=== PATIENT | male | born 1975 ===

== ENCOUNTER 2017-03-12 09:56 | Emergency (ER) | payer OTHER ==
[2017-03-12 10:30] VITALS: RESP 16; TEMP 97.2; O2SAT 100
[2017-03-12] MEDS ORDERED: Albuterol-Ipratrop 3 mg / 0.5 (3 ml) UD INH STA (10:38)
[2017-03-12] MEDS ORDERED: Albuterol-Ipratrop 3 mg / 0.5 (3 ml) UD ONE (10:42)
--- NOTE | 2017-03-12 10:49 | ED PDOC ---
HPI: CCC, URI, Sore Throat Time Seen by Provider: 03/12/17 10:26 Chief Complaint (Nursing): Shortness Of Breath Chief Complaint (Provider): Nasal Congestion History Per: Patient History/Exam Limitations: no limitations Onset/Duration Of Symptoms: Days (x2) Additional Complaint(s): Ehsan Martinez is a 41 year old male that presents to the ED with a chief complaint of a stuffy nose, throat tightness, and chest tightness that he has been experiencing for the past two days. Patient reports that he took OTC antihistamine and Mucinex without relief. He denies any fever, cough, or chest pain, but states that it feels as though he has an "irregular heartbeat." Past Medical History Reviewed: Historical Data, Nursing Documentation, Vital Signs Vital Signs: Last Vital Signs Temp 97.2 F L 03/12/17 10:26 Pulse 79 03/12/17 10:26 Resp 16 03/12/17 10:31 BP 147/99 H 03/12/17 10:26 Pulse Ox 100 03/12/17 14:22 - Medical History PMH: No Chronic Diseases - Surgical History Surgical History: No Surg Hx - Family History Family History: States: Unknown Family Hx - Social History Current smoker - smoking cessation education provided: No Alcohol: Occasional - Allergies Allergies/Adverse Reactions: Allergies Allergy/AdvReac Type Severity Reaction Status Date / Time No Known Allergies Allergy Verified 03/12/17 10:26 Review of Systems Constitutional: Negative for: Fever ENT: Positive for: Nose Congestion, Throat Swelling ("throat tightness") Cardiovascular: Positive for: Other ("chest tightness"). Negative for: Chest Pain Respiratory: Negative for: Cough Physical Exam - Reviewed Nursing Documentation Reviewed: Yes Vital Signs Reviewed: Yes - Physical Exam Appears: Positive for: Non-toxic, No Acute Distress (Patient is speaking full sentences) Head Exam: Positive for: ATRAUMATIC, NORMOCEPHALIC Skin: Positive for: Normal Color, Warm Eye Exam: Positive for: Normal appearance, EOMI ENT: Positive for: Pharynx Is (clear), Nasal Congestion, Other (Throat is clear. Uvula midline. No drooling. ). Negative for: Normal ENT Inspection, Tonsillar Exudate, Tonsillar Swelling Cardiovascular/Chest: Positive for: Regular Rate, Rhythm. Negative for: Murmur Respiratory: Positive for: Normal Breath Sounds. Negative for: Wheezing Gastrointestinal/Abdominal: Positive for: Normal Exam, Soft. Negative for: Tenderness Extremity: Positive for: Normal ROM. Negative for: Pedal Edema Neurologic/Psych: Positive for: Alert, Oriented. Negative for: Motor/Sensory Deficits - Laboratory Results Result Diagrams: 03/12/17 10:50 03/12/17 10:50 - ECG O2 Sat by Pulse Oximetry: 100 (RA) Pulse Ox Interpretation: Normal Medical Decision Making Medical Decision Making: Impression: URI vs. Bronchospasm Plan: * Chest X-Ray * EKG * CMP * CBC * PTT * PT * Troponin I * D-Dimer * Duoneb 3 mg INH * Reevaluation Chest X-Ray FINDINGS: LUNGS: No active pulmonary disease. PLEURA: No significant pleural effusion identified. No pneumothorax apparent. CARDIOVASCULAR: Normal. OSSEOUS STRUCTURES: No significant abnormalities. VISUALIZED UPPER ABDOMEN: Normal. OTHER FINDINGS: None. IMPRESSION: No acute cardiopulmonary disease appreciated. CT Neck/Chest FINDINGS: LUNGS: No infiltrate is identified bilaterally. No definitive mass is seen throughout the pulmonary parenchyma including central airways. MEDIASTINUM: Unremarkable thoracic aorta. No aneurysm or dissection. Normal sized heart. Main pulmonary artery unremarkable. No vascular congestion. No lymphadenopathy. Small hiatal hernia is encountered. PLEURA: No pleural fluid. No pneumothorax. BONES: No fracture. No destructive lesion. UPPER ABDOMEN: Incidental note is made of an ovoid radiodensity within the gastric lumen suggestive of and undigested pill. OTHER FINDINGS: NECK CT: In the neck, the airway through the pharynx larynx and trachea is widely patent without any obstruction identified. No definitive mass seen in the supra or infrahyoid neck with shotty supra and infrahyoid neck lymph nodes identified. Vascular anatomy appears diffusely unremarkable with the salivary glands homogeneous overall opacification. No discrete salivary gland mass is evident. The thyroid gland is unremarkable as well. Incidental views through the visualized brain is sinuses reveal extensive bilateral ethmoid and maxillary sinus disease including a polyp or cyst at the left maxillary sinus with the sphenoid sinus is minimally inflamed. Note, patient complained of difficulty breathing at the end of the case CT scans and on further discussion by the tech with the patient, it was apparent that his sinuses or blocked making it difficult for him to breathe in the complete spine position required for CT. Patient was returned to the restroom in good condition. This was not an apparent reaction to iodinated contrast material. IMPRESSION: 1. Nonacute chest CT. No significant lymphadenopathy or definitive mass identified. 2. No obstruction through the pharynx, larynx or tracheal airways. No suspicious finding on contrast-enhanced imaging through the supra or infrahyoid neck. 3. Incidental note is made of prominent sinus disease as discussed above. Scribe Attestation: Documented by Clara Hwang, acting as a scribe for Sally Landin MD. Provider Scribe Attestation: All medical record entries made by the Scribe were at my direction and personally dictated by me. I have reviewed the chart and agree that the record accurately reflects my personal performance of the history, physical exam, medical decision making, and the department course for this patient. I have also personally directed, reviewed, and agree with the discharge instructions and disposition. Disposition - Clinical Impression Clinical Impression: Sinusitis - Disposition Forms: Primitive Makeup (Romanian)
[2017-03-12 10:59] LABS: BASO # 0.1 K/uL (0.0-0.2); BASO % 0.9 % (0.0-2.0); EOS # 0.7 K/uL (0.0-0.7); EOS % 10.2 % (0.0-4.0); HEMATOCRIT 49.1 % (35.0-51.0); LYMPH # 2.3 K/uL (1.0-4.3); LYMPH % 34.3 % (20.0-40.0); MEAN CELL VOLUME 91.3 fl (80.0-94.0); MEAN CORPUSCULAR HEMOGLOBIN 31.1 pg (27.0-31.0); MEAN CORPUSCULAR HGB CONC 34.1 g/dL (33.0-37.0); MEAN PLATELET VOLUME 9.2 fl (7.2-11.7); MONO # 0.7 K/uL (0.0-0.8); MONO % 10.4 % (0.0-10.0); NEUT % 44.2 % (50.0-75.0); NRBC % 0.2 % (0.0-0.0); RED CELL DISTRIBUTION WIDTH 13.7 % (11.5-14.5); WHITE BLOOD COUNT 6.8 K/uL (4.8-10.8)
[2017-03-12 11:12] LABS: ALB/GLOB RATIO 1.5 (1.0-2.1); ALKALINE PHOSPHATASE 60 U/L (38-126); ALT/SGPT 37 U/L (21-72); AST/SGOT 27 U/L (17-59); BILIRUBIN,TOTAL 0.4 mg/dl (0.2-1.3); BLOOD UREA NITROGEN 12 mg/dl (9-20); CALCIUM 9.1 mg/dL (8.4-10.2); CARBON DIOXIDE 24 mmol/L (22-30); CHLORIDE 104 mmol/L (98-107); GFR AFRICAN-AMERICAN > 60; GLUCOSE,RANDOM 97 mg/dL (75-110); POTASSIUM 3.3 MMOL/L (3.6-5.0); SODIUM 144 mmol/l (132-148); TOTAL PROTEIN 8.1 G/DL (6.3-8.2)
[2017-03-12] MEDS ORDERED: Potassium Chloride 20 mEq ER Tab PO STA (11:24)
[2017-03-12] MEDS ORDERED: Potassium Chloride 20 mEq ER Tab PO ONE (12:15)
[2017-03-12] MEDS ORDERED: Iodixanol 320 MG/ML 100 ML BOTTLE IV ONE (12:34)
[2017-03-12] MEDS ORDERED: Sodium Chloride 0.9% 50 ML IV ONE (12:35)
--- NOTE | 2017-03-12 14:00 | RAD ---
HISTORY: Chest tightness COMPARISON: No prior. TECHNIQUE: Chest PA and lateral FINDINGS: LUNGS: No active pulmonary disease. PLEURA: No significant pleural effusion identified. No pneumothorax apparent. CARDIOVASCULAR: Normal. OSSEOUS STRUCTURES: No significant abnormalities. VISUALIZED UPPER ABDOMEN: Normal. OTHER FINDINGS: None. IMPRESSION: No acute cardiopulmonary disease appreciated.
--- NOTE | 2017-03-12 14:55 | CT ---
PROCEDURE: CT Chest with contrast HISTORY: Throat/chest tightness COMPARISON: None. TECHNIQUE: Contiguous axial images were obtained through the chest with intravenous contrast enhancement. Sagittal and coronal reconstructions were performed. IV contrast: Visipaque 320, 95 cc. Radiation dose (DLP): 855.16 mGy-cm. This CT exam was performed using one or more of the following dose reduction techniques: Automated exposure control, adjustment of the mA and/or kV according to patient size, and/or use of iterative reconstruction technique. FINDINGS: LUNGS: No infiltrate is identified bilaterally. No definitive mass is seen throughout the pulmonary parenchyma including central airways. MEDIASTINUM: Unremarkable thoracic aorta. No aneurysm or dissection. Normal sized heart. Main pulmonary artery unremarkable. No vascular congestion. No lymphadenopathy. Small hiatal hernia is encountered. PLEURA: No pleural fluid. No pneumothorax. BONES: No fracture. No destructive lesion. UPPER ABDOMEN: Incidental note is made of an ovoid radiodensity within the gastric lumen suggestive of and undigested pill. OTHER FINDINGS: NECK CT: In the neck, the airway through the pharynx larynx and trachea is widely patent without any obstruction identified. No definitive mass seen in the supra or infrahyoid neck with shotty supra and infrahyoid neck lymph nodes identified. Vascular anatomy appears diffusely unremarkable with the salivary glands homogeneous overall opacification. No discrete salivary gland mass is evident. The thyroid gland is unremarkable as well. Incidental views through the visualized brain is sinuses reveal extensive bilateral ethmoid and maxillary sinus disease including a polyp or cyst at the left maxillary sinus with the sphenoid sinus is minimally inflamed. Note, patient complained of difficulty breathing at the end of the case CT scans and on further discussion by the tech with the patient, it was apparent that his sinuses or blocked making it difficult for him to breathe in the complete spine position required for CT. Patient was returned to the restroom in good condition. This was not an apparent reaction to iodinated contrast material. IMPRESSION: 1. Nonacute chest CT. No significant lymphadenopathy or definitive mass identified. 2. No obstruction through the pharynx, larynx or tracheal airways. No suspicious finding on contrast-enhanced imaging through the supra or infrahyoid neck. 3. Incidental note is made of prominent sinus disease as discussed above.
[2017-03-12] MEDS ORDERED: Amoxicillin-Clav 875-125 mg Tab PO STA (15:15)
[2017-03-12 15:32] VITALS: BP 143/87; PULSE 64
--- NOTE | 2017-03-13 12:24 | CARD ---
APPROVED REPORT EKG Measurement Heart [id number] <Conclusion> Normal sinus rhythm Normal ECG
== END 2017-03-12 15:29 | disposition home or self-care (01) ==
LOC: H.ER 09:56
DX: J32.9 Chronic sinusitis, unspecified (principal)
CPT/HCPCS: 70491; 71020; 71260; 80053; 84484; 85025; 85378; 85610; 85730; 93005; 99284; Q9967